=== PATIENT | male | born 1985 | race Caucasian/White ===

== ENCOUNTER → 2020-02-14 | Outpatient (CLI) | payer BC ==
[2020-02-14 11:54] LABS: PV SEMEN COLOR STRAW
[2020-02-14 12:17] LABS: PV SEMEN LIQUEFACTION 25 MINUTES (<61); PV SEMEN PH 8.6 (>7.1); PV SEMEN VISCOSITY NORMAL (NORMAL); PV VOLUME 4.2 mL (>1.4)
[2020-02-14 12:21] LABS: PV NONMOTILE COUNT1 0; PV NONMOTILE COUNT2 0
[2020-02-14 12:22] LABS: PV ROUND CELL CONCENTRATION 0.3 X10^6/mL (<5.1); PV ROUND CELL COUNT1 2; PV ROUND CELL COUNT2 3
== END ==
LOC: LAB 11:21
DX: Z30.8 Encounter for other contraceptive management (principal)
CPT/HCPCS: 89321